=== PATIENT | female | born 1985 | race Caucasian/White ===

== ENCOUNTER → 2023-09-19 09:51 | Outpatient (REF) | payer OTHER, SELFPAY | LOC: WDC 09:51 | PROVIDERS: ATTENDING PHYSICIAN Student in an Organized Health Care Education/Training Program | DX: N63.20 Unspecified lump in the left breast, unspecified quadrant (principal); L03.90 Cellulitis, unspecified; N63.24 Unspecified lump in the left breast, lower inner quadrant | CPT/HCPCS: 76642; 77062; 77066 ==

== ENCOUNTER 2023-12-11 06:25 | Day surgery (SDC) | payer OTHER, SELFPAY ==
[2023-11-22 09:38] VITALS: BMI 27.4
[2023-11-22 10:21] LABS: Hematocrit 36.7 % (37.0-47.0); Hemoglobin 12.6 g/dL (12.0-16.0); Mean Corp Hgb Conc. 34.3 g/dL (33.0-37.0); Mean Corpuscular Hgb 30.9 pg (27.0-31.0); Mean Platelet Volume 11.7 fL (7.4-10.4); Platelet Count 213 10^3/uL (130-400); Red Blood Cell Count 4.08 10^6/uL (4.20-5.40); Red Cell Dist. Width 11.4 % (11.5-14.5); White Blood Cell Count 4.9 10^3/uL (4.8-10.8)
[2023-11-22 12:10] LABS: ALT (SGPT) 14 U/L (0-35); AST (SGOT) 22 U/L (14-36); Albumin 4.1 g/dl (3.5-5.0); Alkaline Phosphatase 43 U/L (38-126); Blood Urea Nitrogen 15 mg/dl (7-17); Calcium 9.3 mg/dl (8.4-10.2); Carbon Dioxide 25 mmol/L (22-30); Chloride 105 mmol/L (98-107); Estimated Creatinine Clearance 110 ml/min; Glucose 84 mg/dl (70-99); Potassium 4.7 mmol/L (3.5-5.1); Sodium 138 mmol/L (135-145); Total Bilirubin 0.3 mg/dl (0.2-1.3); Total Protein 6.6 g/dl (6.3-8.2); eGFR > 60.00
[2023-11-22 12:15] LABS: Prealbumin (Transthyretin) 20.6 mg/dl (17.6-36.0)
[2023-11-22 12:43] LABS: Vitamin D, 25-OH*** 43.7 ng/mL (30-80)
[2023-12-11 09:15] VITALS: BP 107/79
[2023-12-11 09:30] VITALS: BMI 27.4
[2023-12-11] MEDS: TYLENOL 1000 MG PO (09:33)
[2023-12-11] MEDS: VANCOCIN 200 IV (09:34)
[2023-12-11] MEDS: NORMOSOL-R 1000 IV (09:34)
[2023-12-11 11:20] VITALS: BP 117/76
[2023-12-11 11:35] VITALS: BP 110/77
[2023-12-11 11:50] VITALS: BP 113/79
== END 2023-12-11 12:10 | disposition home or self-care (01) ==
LOC: SDS 06:25
PROVIDERS: ATTENDING PHYSICIAN Surgery; FAMILY PHYSICIAN Family Medicine
DX: N60.49 Mammary duct ectasia of unspecified breast (principal); N63.20 Unspecified lump in the left breast, unspecified quadrant; Z86.19 Personal history of other infectious and parasitic diseases
CPT/HCPCS: 19120; 88307; 36415; 80053; 82306; 84134; 85027